=== PATIENT | female | born 1975 | race Caucasian/White ===

== ENCOUNTER 2016-10-04 07:33 | Day surgery (SDC) | payer BC ==
[2016-09-29 13:09] LABS: HEMATOCRIT 39.3 % (36.0-47.0); HEMOGLOBIN 13.1 g/dL (12.0-15.5); MEAN CORPUSCULAR HEMOGLOBIN 30.6 pg (27.0-33.4); MEAN CORPUSCULAR HGB CONC 33.4 g/dL (32.0-36.0); MEAN CORPUSCULAR VOLUME 92 fl (80-97); RED CELL DISTRIBUTION WIDTH 12.8 % (11.5-14.0); WHITE BLOOD COUNT 6.8 10^3/uL (4.0-10.5)
[2016-09-29 13:14] LABS: APPEARANCE,URINE SLIGHTLY-CLOUDY; BILIRUBIN,URINE NEGATIVE (NEGATIVE); GLUCOSE, URINE NEGATIVE (NEGATIVE); KETONES,URINE NEGATIVE (NEGATIVE); LEUKOCYTE ESTERASE,URINE MODERATE (NEGATIVE); NITRITE,URINE NEGATIVE (NEGATIVE); PROTEIN,URINE NEGATIVE (NEGATIVE); URINE SPECIFIC GRAVITY 1.013; UROBILINOGEN,URINE NEGATIVE mg/dL (<2.0)
[2016-09-29 13:39] LABS: ALANINE AMINOTRANSFERASE 27 U/L (9-52); ALBUMIN 3.9 g/dL (3.5-5.0); ALKALINE PHOSPHATASE 61 U/L (38-126); ANION GAP 10 (5-19); ASPARTATE AMINO TRANSFERASE 13 U/L (14-36); BILIRUBIN,DIRECT 0.3 mg/dL (0.0-0.4); BILIRUBIN,TOTAL 0.6 mg/dL (0.2-1.3); BLOOD UREA NITROGEN 12 mg/dL (7-20); CALCIUM 8.8 mg/dL (8.4-10.2); CARBON DIOXIDE 24 mmol/L (22-30); CHLORIDE 105 mmol/L (98-107); CREATININE RESULT 0.65 mg/dL (0.52-1.25); GLUCOSE 72 mg/dL (75-110); POTASSIUM 4.5 mmol/L (3.6-5.0); SODIUM 138.9 mmol/L (137-145); TOTAL PROTEIN 6.9 g/dL (6.3-8.2)
--- NOTE | 2016-09-29 20:24 | EKG REPORT ---
SEVERITY:- NORMAL ECG - SINUS RHYTHM : Confirmed by: Kristofer Love MD 29-Sep-2016 20:23:41
[~2016-10-04 07:33] MED LIST: CEFAZOLIN 1 GM/D5W RTU 1 GM/50 ML RTUPB IV PRN; LACTATED RINGERS 1000 ML IV PRN; LIDOCAINE 0.5% INJ-PF (5 MG/ML) 50 ML SDV SUBCUT PRN
[2016-10-04] MEDS ORDERED: BUPIVACAINE HCL 0.25% /EPINEPHRINE INJ/PF 30 ML SDV ONE (07:38)
[2016-10-04] MEDS ORDERED: CEFAZOLIN 2 GM/D5W RTU 2 GM/50 ML RTUPB IV ONE (08:02)
[2016-10-04] MEDS ORDERED: NEOSTIGMINE METHYLSULFATE 10 MG/10 ML VIAL ONE (08:41)
[2016-10-04] MEDS ORDERED: DEXAMETHASONE SOD PHOSPHATE INJ 4 MG/1 ML VIAL ONE (08:41)
[2016-10-04] MEDS ORDERED: GLYCOPYRROLATE INJ 0.4 MG/2 ML VIAL ONE (08:41)
[2016-10-04] MEDS ORDERED: LIDOCAINE 2% INJ-PF (20 MG/ML) 10 ML AMPUL ONE (08:41)
[2016-10-04] MEDS ORDERED: ONDANSETRON HCL INJ/PF 4 MG/2 ML SDV ONE ×2 (08:41)
[2016-10-04] MEDS ORDERED: VECURONIUM BROMIDE INJ 10 MG VIAL IV ONE ×2 (08:41)
[2016-10-04] MEDS ORDERED: SUCCINYLCHOLINE CHLORIDE INJ 200 MG/10 ML VIAL ONE (08:41)
[2016-10-04] MEDS ORDERED: SCOPOLAMINE HYDROBROMIDE 1.5 MG PATCH.TD72 ONE (09:00)
[2016-10-04] MEDS ORDERED: RINGERS SOLUTION,LACTATED 1,000 ML IV ONE (09:00)
[2016-10-04] MEDS ORDERED: FAMOTIDINE INJ/PF 20 MG/2 ML SDV IV ONE (09:00)
[2016-10-04] MEDS ORDERED: FENTANYL CITRATE INJ/PF 250 MCG/5 ML AMPULE ONE (09:37)
[2016-10-04] MEDS ORDERED: HYDROMORPHONE HCL INJ/PF 2 MG/ML AMPULE ONE (09:38)
[2016-10-04] MEDS ORDERED: ACETAMINOPHEN 100 ML IV ONE (09:38)
[2016-10-04] MEDS ORDERED: MIDAZOLAM 2 MG/2 ML INJ ONE (09:38)
[2016-10-04] MEDS ORDERED: PROPOFOL INJ 200 MG/20 ML VIAL IV ONE (09:38)
[2016-10-04] MEDS ORDERED: CEFAZOLIN 2 GM/D5W RTU 2 GM/50 ML RTUPB IV PRN (09:48)
[2016-10-04] MEDS ORDERED: BUPIVACAINE HCL 0.25 % INJ/PF (2.5 MG/1 ML) 30 ML VIAL ONE (10:14)
[2016-10-04] MEDS ORDERED: DIPHENHYDRAMINE HCL 50 MG/ML VIAL IV PRN (10:31)
[2016-10-04] MEDS ORDERED: MORPHINE SULFATE 10 MG/ML INJ IV PRN (10:31)
[2016-10-04] MEDS ORDERED: FENTANYL CITRATE INJ/PF 100 MCG/2 ML AMPUL IV PRN ×3 (10:31)
[2016-10-04] MEDS ORDERED: MEPERIDINE HCL/PF INJ 25 MG/1 ML DISP.SYRIN IV PRN (10:31)
[2016-10-04] MEDS ORDERED: PROMETHAZINE HCL INJ 25 MG/1 ML VIAL IV PRN (10:31)
[2016-10-04] MEDS ORDERED: METHYLENE BLUE 50 MG/10 ML AMPULE ONE ×2 (11:10→12:15)
[2016-10-04] MEDS ORDERED: CEFAZOLIN INJ 1 GM VIAL ONE (12:46)
--- NOTE | 2016-10-04 15:34 | CONSULTATION REPORT E ---
Consultation Report NAME: NAKIA BRYANT : 1975 AGE: 41Y DATE: 10/04/2016 TO: LELA FERMIN M.D. FROM: CARLI FITZGERALD M.D. Requesting Physician HISTORY OF PRESENT ILLNESS: Thank you for asking me to see this 41-year-old female, who is currently undergoing an attempted laparoscopic hysterectomy by Dr. Fitzgerald and her wet process miller head assistant. I was consulted intraoperatively because of the presence of a large amount of intraperitoneal adhesions, which would prevent Dr. Fitzgerald's safe performance of the planned hysterectomy. The patient has a history of dysmenorrhea as well as abdominal pain. She has had multiple previous abdominal surgeries and she presents for multiple intraabdominal adhesions during the laparoscopic examination. PHYSICAL EXAMINATION: The patient is prepped and draped. A laparoscope is inserted through a 5 mm port in the umbilicus and a 5 mm in the right lower quadrant of the abdomen. Examination of the peritoneal cavity reveals the presence of multiple intraabdominal adhesions. ASSESSMENT: 1. Dysmenorrhea. 2. Abdominal pain. 3. Multiple intraabdominal adhesions. PLAN: I will plan to perform a laparoscopic lysis of adhesions and possible open to assist Dr. Fitzgerald with performing the planned laparoscopic hysterectomy. DICTATING PHYSICIAN: LELA FERMIN M.D. [id number] PHY#: [id number] ID: [id number] JOB#: [id number] ACCT: [id number] cc:LELA FERMIN M.D. > MTDD
[2016-10-04] MEDS ORDERED: IBUPROFEN 800 MG TABLET PO PRN (15:48)
--- NOTE | 2016-10-04 17:19 | OPERATIVE REPORT E ---
Operative Report NAME: NAKIA BRYANT : 1975 AGE: 41Y DATE OF SURGERY: 10/04/2016 ROOM: 206 PREOPERATIVE DIAGNOSES: 1. Severe intraperitoneal adhesions. 2. Dysfunctional uterine bleeding. 3. Abdominal pain. POSTOPERATIVE DIAGNOSES: 1. Severe intraperitoneal adhesions. 2. Dysfunctional uterine bleeding. 3. Abdominal pain. PROCEDURE: Extensive lysis of adhesions, taking about 1 hour, both laparoscopic and open. SURGEON: LELA FERMIN M.D. STEEL TURNER: CARLI FITZGERALD M.D. (who dictated, also, her portion of the procedure). ANESTHESIA: General. INDICATION AND FINDINGS: This is a 41-year-old female with a history of dysfunctional uterine bleeding, abdominal pain, who was undergoing a laparoscopic, converted then to open, hysterectomy. I was consulted intraoperatively by the patient's Hospital Cook and Surgeon, Dr. Fitzgerald. Dr. Fitzgerald entered the abdomen through a laparoscopic port and found a large amount of intraabdominal adhesions due to previous surgeries as well as endometriosis. A decision was made to consult me and ask for my assistance to taking down the adhesions so to allow a safe laparoscopic or open hysterectomy. DESCRIPTION OF PROCEDURE: The patient was already in the operating room. The patient was in a supine position with the abdomen prepped and sterilly draped. A laparoscope was inserted through a midline port of the umbilicus and a second and third port were placed in the right and left lateral quadrants of the abdomen, respectively. The patient was placed in Trendelenburg position. The scope was inserted and a large amount of intraperitoneal adhesions were noted between the small bowel, colon, anterior abdominal wall, and the uterus. These adhesions were taken down painstakingly with both blunt dissection, using a peanut dissector, so to gently push the small bowel and the colon away from the abdominal wall, as well as the use of LigaSure. This was done without difficulty and the entire small bowel as well as colon were detached from the anterior abdominal wall. Next, the neck uterus was found to be surrounded by both colon and small bowel loops firmly adherent to it by both thin and thick adhesions. These were taken down both bluntly and with use of LigaSure without difficulty. However, while the initial dissection of the adhesions from the body and the fundus of the uterus was done successfully, additional dissection of adhesions of small bowel and colon with the neck of the uterus close to the cervix revealed to be more challenging due to poor visibility, bleeding, and the presence of very tenacious adhesions. At this point, the decision was made to convert the procedure from laparoscopic to open. Dr. Fitzgerald and her compounding assistant performed from a laparotomy via a Pfannenstiel incision. The peritoneal cavity was entered and small bowel and colon adhesions were taken down from the uterine neck without difficulty. Dr. Fitzgerald will dictate the rest of her procedure. Finally, again, at the end of the procedure, the rectosigmoid colon was run and found to be free from enterotomies. There was 1 area of deserosalization of the midsigmoid colon, which was repaired by interrupted Lembert 3-0 silk sutures. DICTATING PHYSICIAN: LELA FERMIN M.D. [id number] PHY#: [id number] ID: [id number] JOB#: [id number] ACCT: [id number] cc:LELA FERMIN M.D. > MTDD
[2016-10-04] MEDS ORDERED: KETOROLAC TROMETHAMINE INJ/PF 30 MG/1 ML SDV ONE (17:30)
[2016-10-04] MEDS: HYDROMORPHONE HCL INJ/PF 2 MG/ML AMPULE IV PRN ×2 (19:12→22:48)
[2016-10-05] MEDS: KETOROLAC TROMETHAMINE INJ/PF 30 MG/1 ML SDV IV SCH ×2 (02:00→09:41)
[2016-10-05] MEDS: HYDROMORPHONE HCL INJ/PF 2 MG/ML AMPULE IV PRN ×4 (04:12→20:36)
[2016-10-05 07:08] LABS: HEMATOCRIT 33.2 % (36.0-47.0); HGB HCT DIFFERENCE -0.2; MEAN CORPUSCULAR HEMOGLOBIN 30.4 pg (27.0-33.4); MEAN CORPUSCULAR HGB CONC 33.1 g/dL (32.0-36.0); MEAN CORPUSCULAR VOLUME 92 fl (80-97); RED BLOOD COUNT 3.62 10^6/uL (3.72-5.28); RED CELL DISTRIBUTION WIDTH 13.1 % (11.5-14.0); WHITE BLOOD COUNT 10.7 10^3/uL (4.0-10.5)
[2016-10-05] MEDS ORDERED: HYDROMORPHONE HCL 2 MG TABLET PO PRN (23:27)
[2016-10-05] MEDS: OXYCODONE-ACETAMINOPHEN 5-325 MG TABLET PO PRN (23:47)
[2016-10-06] MEDS: OXYCODONE-ACETAMINOPHEN 5-325 MG TABLET PO PRN (04:27)
--- NOTE | 2016-10-06 06:24 | PDOC PROGRESS REPORT ---
Subjective Progress Note for:: 10/05/16 Subjective:: doing well, no n/v, desires to have freire to gravity removed. pain controlled currently on IV meds. Physical Exam - Physical Exam Vital Signs: Temp Pulse Resp BP Pulse Ox 98.3 F 85 16 113/60 98 10/05/16 07:33 10/05/16 07:33 10/05/16 07:33 10/05/16 07:33 10/05/16 07:33 Intake & Output 10/04/16 10/05/16 10/06/16 06:59 06:59 06:59 Intake Total 7600 Output Total 4550 Balance 3050 Weight 88.45 kg General appearance: PRESENT: no acute distress, well-developed, well-nourished Head exam: PRESENT: atraumatic, normocephalic Neck exam: PRESENT: full ROM. ABSENT: carotid bruit, JVD, lymphadenopathy, thyromegaly Respiratory exam: PRESENT: clear to auscultation vitaly, symmetrical, unlabored Cardiovascular exam: PRESENT: RRR. ABSENT: diastolic murmur, rubs, systolic murmur Vascular exam: PRESENT: normal capillary refill GI/Abdominal exam: PRESENT: normal bowel sounds, soft, tenderness - approp ttp after extensive surgery, other - incisions C/D/I. ABSENT: distended, guarding, mass, organolmegaly, rebound Rectal exam: PRESENT: deferred Extremities exam: PRESENT: full ROM. ABSENT: calf tenderness, clubbing, pedal edema Neurological exam: PRESENT: alert, awake, oriented to person, oriented to place , oriented to time, oriented to situation, CN II-XII grossly intact. ABSENT: motor sensory deficit Psychiatric exam: PRESENT: appropriate affect, normal mood. ABSENT: homicidal ideation, suicidal ideation Skin exam: PRESENT: dry, intact, warm. ABSENT: cyanosis, rash Result Laboratory Results: 10/05/16 06:00 09/29/16 11:35 10/05/16 06:00 WBC 10.7 H RBC 3.62 L Hgb 11.0 L Hct 33.2 L MCV 92 MCH 30.4 MCHC 33.1 RDW 13.1 Plt Count 150 Status: Imported from PACS Assessment & Plan - Diagnosis (1) Endometriosis determined by laparoscopy Is this a current diagnosis for this admission?: YesPlan: s/p extensive pelvic adhesiolysis and JOSE, Cystoscopy, Culdoplasty (2) Pelvic adhesive disease Is this a current diagnosis for this admission?: YesPlan: s/p extensive FABRICE (3) Dysfunctional uterine bleeding Is this a current diagnosis for this admission?: YesPlan: S/p JOSE, advance care today. Plan for discharge to home tomorrow with po pain medication. - Time Time Spent with patient: 25-34 minutes Critical Time spent with patient: 15-24 minutes Medications reviewed and adjusted accordingly: Yes Anticipated discharge: Home Within: within 48 hours - Inpatient Certification Medical Necessity: Need For IV Fluids, Need for Pain Control Post Hospital Care: D/C Geoscience Technician Documentation
--- NOTE | 2016-10-06 09:46 | Operative Report ---
Operative Report DATE OF SURGERY: 10/04/16 PREOPERATIVE DIAGNOSIS: Dysfunctional Uterine Bleeding, Pelvic pain. POSTOPERATIVE DIAGNOSIS: SEBASTIAN, Endometriosis, Pelvic Adhesive Disease, Extensive Bowel Adhesions. OPERATION: Operative L/S with Extensive FABRICE, Conversion to Laparotomy with JOSE and LSO, Lysis of adhesions, Culdoplasty, Cystoscopy SURGEON: CARLI FITZGERALD 1ST DRAWER IN DOBBY LOOM: KAREN JAIME 2ND Crocodile Farmer: LELA FERMIN ANESTHESIA: GA TISSUE REMOVED OR ALTERED: Uterus and cervix, Left Fallopian tube and Left ovary COMPLICATIONS: extensive pelvic adhesions and conversion to abdominal hysterectomy due to significant bowel adhesions. ESTIMATED BLOOD LOSS: 300ml INTRAOPERATIVE FINDINGS: Upon entry with the laparoscope extensive pelvic adhesions noted with bowel adhesions to the left and right pelvic sidewall, and dense adhesions attached circumferentially around the uterus. Right fallopian tube and ovary surgically absent. Uterus normal, left endometrioma and left ovary and fallopian tube densely adhered to pelvic sidewall. PROCEDURE: Anesthesia: Julio MOFFETT, Keenan Peraza CRNA Indications: Estimated blood loss: 300ml Urine output: 1400ml IV fluids: 3200ml Procedure the patient was taken to the operating room where general anesthesia was obtained. The patient was then prepped and placed in the dorsal supine position with lithotomy and prepped and draped in the usual fashion. A speculum was then placed in the patient's vagina and the cervix grasped with a single-tooth tenaculum at approximately the 12 o'clock position of the anterior lip of the cervix. The medium Vesicare device was then placed and suture placed at the 12 o'clock position as well in order to maintain cut against the cervix during procedure. Single-tooth tenaculum and speculum were then removed from the patient's cervix and vagina. Attention was then turned to the abdomen where an infraumbilical skin incision was made and the Veress needle inserted into the abdominal cavity. Aspiration was negative therefore the abdomen was insufflated with carbon dioxide approximately 4 L. After adequate insufflation the Veress needle was removed and the 5 mm Optiview trocar was placed under direct visualization with the laparoscope. Survey of the patient's abdomen and pelvis were performed with findings as noted above with bowel adhesions so significant around and to the uterus that the uterus was unable to be manipulated. At this time 5mm skin incisions were made approximately 2 cm medial and 4 cm superior to the anterior iliac spine on both the left and the right. Additional survey was performed and these adhesions appeared to be dense around the uterus. General Surgery consult was done and Dr. Ferimn came in to evaluate the pelvic adhesive disease. 5 mm trochars placed at all of the sites. Extensive pelvic adhesiolysis then performed for approxiately 1.5 hours with the Laparoscopic Ligasure with removal of the bowel adhesions to the left and right pelvic sidewall and to the anterior portion of the uterus. Once visualiztion of the posterior portion of the uterus was achieved the bowel adhesions to the posterior uterus were noted to be very dense and ahesiolysis was unable to be safely effected with the Laparoscopic then decision was made to convert to open abdominal procedure to safely perform the remainder of the adhesiolysis. The umbilical and right and left trocars were then removed and trocar sites closed in the usual fashion with 3-0 monocryl and dermabond. At this time a Pfannenstiel skin incision was then made and carried through to the underlying layers of the fascia with the scalpel. The fascia was incised in the midline and the incision extended laterally with the Macias scissors. The superior aspect of the fascial incision was then grasped with Madiha clamps elevated and the underlying rectus muscles dissected off sharply. Attention was then turned to the inferior aspect of the fascial incision which in a similar fashion was grasped, tented up with Mihaela clamps, and the rectus muscles dissected off sharply. The rectus muscles were then in the midline and the peritoneum at the amount identified and entered sharply. At this time continued lysis of adhesions and removal of adhesions of the bowel from the posterior surface of the uterus were effected with the assistance of Dr. Fermin. The left and right round ligaments were identified and ligated and transected and the bladder flap carefully created. Then the utero-ovarian vessels/ligaments were cauterized and transected in the usual fashion with the LigaSure device the remainder of the uterine vessels in anterior and posterior leaves of the broad ligament as well as cardinal and uterosacral ligaments were coagulated and transected in a serial fashion down to the level of the uterine artery. The uterine artery was then identified and cauterized and transected in the usual fashion with the LigaSure device. The anterior leaf of the broad ligament was then dissected to the midline establishing a bladder flap with a combination of blunt and sharp dissection. Sharp dissection made superiorly bilaterally to the level of the internal os of the cervix. Ann Marie were then placed serially bilaterally from the internal os to the level of the distal cervix and serially ligated and transected and Bebeto scissors used to effect amputation of the cervix thus removing the uterus and cervix. The vaginal cuff was then closed with interruped 2-0 vicryl suture. Culdoplasty performed with 2-0 ethibond from the left uterosacral to the right uterosacral ligaments in the usual fashion. [place] retractor was placed for visualization. At this time attention was turned to the left pelvic sidewall where the left fallopian tube and left ovary were identified and carefully resected from their attachments to the pelvic sidewall. Endometrioma was identified. The left fallopian tube and ovary and the uterus and cervix were handed off to pathology. The abdomen was then copiously irrigated and no evidence of bleeding noted with all sites hemostatic. Sponges, laps and instruments removed. The peritoneum and rectus muscles were then closed en mass with 2-0 chromic in a running fashion. The fascia was reapproximated with 0 Vicryl in a running fashion from each lateral edge to the midline. The skin was closed with 3-0 Monocryl in a running subcuticular fashion with overlying Dermabond for additional dressing as well as wound closure. The patient tolerated the procedure well. Sponge lap needle and instrument counts are correct times 2. 2 g of Ancef were given prior to skin incision then redosed after 3 hours due to the length of the procedure. At this time freire catheter was removed and cystoscopy was performed with bladder wall intact and bilateral ureteral jets noted. A new freire catheter was placed. At this time the procedure was complete and the patient was taken to the recovery area awake and in stable condition.
--- NOTE | 2016-10-06 10:23 | PDOC PROGRESS REPORT ---
Subjective Progress Note for:: 10/06/16 Subjective:: doing well, no n/v, freire to gravity discontinued yesterday and pt reports voiding well, ambulating to the bathroom, pain controlled currently on po meds, + flatus, no BM Physical Exam - Physical Exam Vital Signs: Temp Pulse Resp BP Pulse Ox 98.2 F 84 16 115/59 L 99 10/06/16 09:00 10/06/16 09:00 10/06/16 09:00 10/06/16 09:00 10/06/16 09:00 Intake & Output 10/05/16 10/06/16 10/07/16 06:59 06:59 06:59 Intake Total 7600 550 Output Total 4550 1000 Balance 3050 -450 Weight 88.45 kg General appearance: PRESENT: no acute distress, well-developed, well-nourished Head exam: PRESENT: atraumatic Respiratory exam: PRESENT: clear to auscultation vitaly, symmetrical, unlabored Cardiovascular exam: PRESENT: RRR. ABSENT: diastolic murmur, rubs, systolic murmur GI/Abdominal exam: PRESENT: normal bowel sounds, soft, tenderness - approp ttp, incisions c/d/i, other. ABSENT: distended, guarding, mass, organolmegaly, rebound Rectal exam: PRESENT: deferred Extremities exam: PRESENT: full ROM. ABSENT: calf tenderness, clubbing, pedal edema Musculoskeletal exam: PRESENT: ambulatory Neurological exam: PRESENT: alert, awake, oriented to person, oriented to place , oriented to time, oriented to situation, CN II-XII grossly intact. ABSENT: motor sensory deficit Psychiatric exam: PRESENT: appropriate affect, normal mood. ABSENT: homicidal ideation, suicidal ideation Skin exam: PRESENT: dry, intact, warm. ABSENT: cyanosis, rash Result Laboratory Results: 10/05/16 06:00 09/29/16 11:35 Assessment & Plan - Diagnosis (1) Endometriosis determined by laparoscopy Is this a current diagnosis for this admission?: YesPlan: s/p extensive pelvic adhesiolysis and JOSE, Cystoscopy, Culdoplasty (2) Pelvic adhesive disease Is this a current diagnosis for this admission?: YesPlan: s/p extensive FABRICE (3) Dysfunctional uterine bleeding Is this a current diagnosis for this admission?: YesPlan: S/p JOSE, advance care today. Tolerated advance of care yesterday well. Meets criteria for discharge. Discharge to home today. F/u in office next week. - Time Time Spent with patient: Less than 15 minutes Medications reviewed and adjusted accordingly: Yes Anticipated discharge: Home Within: within 24 hours - Plan Summary Plan Summary: Discharge to home.
--- NOTE | 2016-10-06 10:37 | PDOC DISCHARGE SUMMARY ---
General - Admit/Disc Date/PCP Admission Date/Primary Care Provider: GAY NUNEZDO Admitted 10/04/2016 Discharge Date: 10/06/16 - Discharge Diagnosis (1) Endometriosis determined by laparoscopy Is this a current diagnosis for this admission?: YesSummary: Severe endometriosis and pelvic adhesions noted on L/S. LAVH abandoned and concerted to JOSE. See op note. (2) Pelvic adhesive disease Is this a current diagnosis for this admission?: YesSummary: See op note. S/p Adhesiolysis and JOSE. Doing well and tolerated advance of care w/o difficulty. (3) Dysfunctional uterine bleeding Is this a current diagnosis for this admission?: YesSummary: S/o JOSE/LSO, h/o RSO. Doing well postop. Discharge to home. Rx norethindrone for prevention of climacteric symptoms. Percocet and Dilaudid given for pain. F/u in office in 1 wk. - Additional Information Discharge Diet: As Tolerated Discharge Activity: Activity As Tolerated, No Driving, Pelvic Rest, Slowly Increase Activity Home Medications: Docusate Sodium [Colace 100 mg Capsule] 100 mg PO BID #60 capsule 10/06/16 Hydromorphone HCl [Dilaudid 2 mg Tablet] 2 mg PO Q4HP PRN #30 tablet 10/06/16 Ibuprofen [Motrin 800 mg Tablet] 800 mg PO Q8HP PRN #90 tablet 10/06/16 Norethindrone Acetate [Norethindrone AC (Lupaneta)] 5 mg PO DAILY #90 tablet Oxycodone HCl/Acetaminophen [Percocet 5-325 mg Tablet] 2 tab PO Q4HP PRN #60 tablet 10/06/16 Simethicone [Mylicon 80 mg Chewable Tablet] 80 mg PO QIDP PRN #60 tab.chew 10/06 History of Present Illness History of Present Illness: NAKIA BRYANT is a 41 year old female with DUB and pelvic pain s/p H/ S D&C and Myosure in 12/2015 with persistent DUB beginnign in June. She desired definitive management with Hysterectomy. LAVH attempted but due to dense pelvic adhesions and bowel adhesions converted to JOSE. Hospital Course Hospital Course: 41 year old female with DUB and pelvic pain s/p H/S D&C and Myosure in 12/2015 with persistent DUB beginnign in June. She desired definitive management with Hysterectomy. LAVH attempted but due to dense pelvic adhesions and bowel adhesions converted to JOSE. Pt tolerated advance of care on POD#1 and then meets criteria for discharge on POD#2 Physical Exam - Physical Exam Vital Signs: Temp Pulse Resp BP Pulse Ox 98.2 F 84 16 115/59 L 99 10/06/16 09:00 10/06/16 09:00 10/06/16 09:00 10/06/16 09:00 10/06/16 09:00 Intake & Output 10/05/16 10/06/16 10/07/16 06:59 06:59 06:59 Intake Total 7600 550 Output Total 4550 1000 Balance 3050 -450 Weight 88.45 kg General appearance: PRESENT: no acute distress, well-developed, well-nourished Head exam: PRESENT: atraumatic, normocephalic Neck exam: PRESENT: full ROM. ABSENT: carotid bruit, JVD, lymphadenopathy, thyromegaly Respiratory exam: PRESENT: clear to auscultation vitaly, symmetrical, unlabored Cardiovascular exam: PRESENT: RRR. ABSENT: diastolic murmur, rubs, systolic murmur Pulses: PRESENT: normal dorsalis pedis pul, +2 pedal pulses bilateral Vascular exam: PRESENT: normal capillary refill GI/Abdominal exam: PRESENT: normal bowel sounds, soft, tenderness - approp ttp, incisions c/d/i. ABSENT: distended, guarding, mass, organolmegaly, rebound Rectal exam: PRESENT: deferred Extremities exam: PRESENT: full ROM. ABSENT: calf tenderness, clubbing, pedal edema Neurological exam: PRESENT: alert, awake, oriented to person, oriented to place , oriented to time, oriented to situation, CN II-XII grossly intact. ABSENT: motor sensory deficit Psychiatric exam: PRESENT: appropriate affect, normal mood. ABSENT: homicidal ideation, suicidal ideation Skin exam: PRESENT: dry, intact, warm. ABSENT: cyanosis, rash Result Laboratory Results: 10/05/16 06:00 09/29/16 11:35 Plan Discharge Plan: Discharge to home and f/u in office in 1 weeks since converted to JOSE Time Spent: Less than 30 Minutes
[2016-10-06 10:57] VITALS: BP 120/61
== END 2016-10-06 11:26 | disposition home or self-care (01) ==
LOC: OROUT 07:33 → 2N 16:55 → OROUT 10-06 11:26
PROVIDERS: ATTEND Student in an Organized Health Care Education/Training Program
PROC: 0UTC0ZZ Resection of Cervix, Open Approach (ICD-10-PCS; 2016-10-04)
PROC: 0UT10ZZ Resection of Left Ovary, Open Approach (ICD-10-PCS; 2016-10-04)
PROC: 0UT60ZZ Resection of Left Fallopian Tube, Open Approach (ICD-10-PCS; 2016-10-04)
PROC: 0DNW0ZZ Release Peritoneum, Open Approach (ICD-10-PCS; 2016-10-04)
PROC: 0UT90ZZ Resection of Uterus, Open Approach (ICD-10-PCS; principal; 2016-10-04 09:45)
DX: N72 Inflammatory disease of cervix uteri (principal); D25.1 Intramural leiomyoma of uterus; N83.12 Corpus luteum cyst of left ovary; N70.11 Chronic salpingitis; N80.1 Endometriosis of ovary; N80.2 Endometriosis of fallopian tube; K66.0 Peritoneal adhesions (postprocedural) (postinfection); R10.9 Unspecified abdominal pain; N93.8 Other specified abnormal uterine and vaginal bleeding; M79.7 Fibromyalgia; Z53.31 Laparoscopic surgical procedure converted to open procedure; Z88.8 Allergy status to other drugs, medicaments and biological substances; Z88.6 Allergy status to analgesic agent; Z88.2 Allergy status to sulfonamides; Z79.891 Long term (current) use of opiate analgesic; Z79.899 Other long term (current) drug therapy
CPT/HCPCS: 93005; 86900; 86901; 36415 ×2; 86850; 85027 ×2; 81025; 80053; 81001; 88305 ×2; 88307 ×2; 93010; 58150; 58999; 49329; C1765; J2250; J0690 ×2; J1100; J3010; J3490 ×2; J1885; J1170; J0330; J2405; J7120; J2704; S0028; J0131; Q9968; 840

== ENCOUNTER 2016-11-22 19:34 | Emergency (ER) | payer BC ==
[2016-11-22 20:10] VITALS: BP 124/68
[2016-11-22] MEDS ORDERED: LIDOCAINE 1%/EPINEPHRINE INJ 20 ML VIAL INJ ONE (22:02)
--- NOTE | 2016-11-22 22:04 | ER Document Report ---
ED Animal Bite - General Chief Complaint: Animal Bite Stated Complaint: LEFT LEG INJURY Time Seen by Provider: 11/22/16 21:55 Notes: Patient is a 41-year-old female comes emergency department for chief complaint of bite to her left lower extremity by her 5 foot 10.2 pound josephine. This happened just prior to arrival. She is up-to-date on her tetanus shot within the past year. She denies history of diabetes. This is the second time her nicholasa has bitten her requiring sutures. TRAVEL OUTSIDE OF THE [place] IN LAST 30 DAYS: No - Related Data Allergies/Adverse Reactions: aspirin [Aspirin] Allergy (Unknown, Verified 11/22/16 20:04) cranberry Allergy (Unknown, Verified 11/22/16 20:04) UTIs Sulfa (Sulfonamide Antibiotics) Allergy (Unknown, Verified 11/22/16 20:04) migraines,GI upset sulfamethoxazole [From Septra] Allergy (Unknown, Verified 11/22/16 20:04) amitriptyline [Amitriptyline] Allergy (Verified 11/22/16 20:04) pregabalin [From Lyrica] Allergy (Verified 11/22/16 20:04) Past Medical History - General Information source: Patient - Social History Smoking Status: Never Smoker Frequency of alcohol use: None Drug Abuse: None Lives with: Family Family History: Arthritis, CAD, DM, Malignancy - Past Medical History Cardiac Medical History: Denies: Hx Coronary Artery Disease, Hx Heart Attack, Hx Hypertension Pulmonary Medical History: Denies: Hx Asthma, Hx Bronchitis, Hx COPD, Hx Pneumonia Neurological Medical History: Reports: Hx Migraine. Denies: Hx Cerebrovascular Accident, Hx Seizures Renal/ Medical History: Denies: Hx Peritoneal Dialysis GI Medical History: Reports: Hx Gastroesophageal Reflux Disease Musculoskeltal Medical History: Reports Hx Arthritis - KNEES- RECEIVES INJECTIONS, Reports Hx Fibromyalgia Psychiatric Medical History: Reports: Hx Anxiety, Hx Depression, Hx Obsessive Compulsive Disorder Past Surgical History: Reports: Hx Gynecologic Surgery - right tube and ovary removed., Hx Tonsillectomy, Hx Tubal Ligation - Immunizations Immunizations up to date: Yes Hx Diphtheria, Pertussis, Tetanus Vaccination: Yes Review of Systems - Review of Systems Constitutional: No symptoms reported EENT: No symptoms reported Cardiovascular: No symptoms reported Respiratory: No symptoms reported Gastrointestinal: No symptoms reported Genitourinary: No symptoms reported Female Genitourinary: No symptoms reported Musculoskeletal: See HPI Skin: See HPI Hematologic/Lymphatic: No symptoms reported Neurological/Psychological: No symptoms reported Physical Exam - Vital signs Vitals: Temp Pulse Resp BP Pulse Ox 98.9 F 88 18 124/68 100 11/22/16 20:04 11/22/16 20:04 11/22/16 20:04 11/22/16 20:04 11/22/16 20:04 Interpretation: Normal - General General appearance: Appears well, Alert In distress: None - HEENT Head: Normocephalic, Atraumatic Eyes: Normal Pupils: PERRL - Respiratory Respiratory status: No respiratory distress Chest status: Nontender Breath sounds: Normal Chest palpation: Normal - Cardiovascular Rhythm: Regular Heart sounds: Normal auscultation Murmur: No - Abdominal Inspection: Normal Distension: No distension Bowel sounds: Normal Tenderness: Nontender Organomegaly: No organomegaly - Back Back: Normal, Nontender - Extremities General upper extremity: Normal inspection, Nontender, Normal color, Normal ROM , Normal temperature General lower extremity: Other - Left distal anterior tibial area with one 4 cm horizontal laceration, also an irregular laceration in the shape of a cross, approximately 7 cm across - Neurological Neuro grossly intact: Yes Cognition: Normal Orientation: AAOx4 [place] Coma Scale Eye Opening: Spontaneous [place] Coma Scale Verbal: Oriented [place] Coma Scale Motor: Obeys Commands [place] Coma Scale Total: 15 Speech: Normal Motor strength normal: LUE, RUE, LLE, RLE Sensory: Normal - Psychological Associated symptoms: Normal affect, Normal mood - Skin Skin Temperature: Warm Skin Moisture: Dry Skin Color: Normal Course - Re-evaluation Re-evalutation: Lacerations cleaned, sutured, dressed. Based on journal data on the Internet the bacteria to cover from iguana bite are covered with staph coverage and fluoroquinolone coverage. Given Keflex and Cipro. Discussed wound care, follow -up, return precautions. Patient states understanding and agreement. - Vital Signs Vital signs: Temp Pulse Resp BP Pulse Ox 98.9 F 88 18 124/68 100 11/22/16 20:04 11/22/16 20:04 11/22/16 20:04 11/22/16 20:04 11/22/16 20:04 Procedures - Laceration/Wound Repair left distal tibia #1 Wound length (cm): 4 Wound's Depth, Shape: Linear Laceration pre-procedure: Sterile PPE donned, Sterile drapes applied, Shur- Clens applied - surgical cleanser Anesthetic type: 1% Lidocaine w/epi Volume Anesthetic (mLs): 3 Wound explored: Clean, No foreign body removed Irrigated w/ Saline (mLs): 40 Wound Repaired With: Sutures Suture Size/Type: 4:0, Nylon Number of Sutures: 8 Layer Closure?: No Post-procedure wound care: Sterile dressing applied Post-procedure NV exam normal: Yes Complications: No left distal tibia #2 Wound length (cm): 8 - 7 across, 1 vertical Wound's Depth, Shape: Irregular Laceration pre-procedure: Sterile PPE donned, Sterile drapes applied, Shur- Clens applied - surgical cleanser Anesthetic type: 1% Lidocaine w/epi Volume Anesthetic (mLs): 5 Wound explored: Clean, No foreign body removed Irrigated w/ Saline (mLs): 50 Wound Debrided: Minimal Wound Repaired With: Sutures Suture Size/Type: 4:0, Nylon Number of Sutures: 18 Layer Closure?: No - two vertical matresses, but no deep sutures Post-procedure wound care: Sterile dressing applied Post-procedure NV exam normal: Yes Complications: No Discharge - Discharge Clinical Impression: Animal bite Condition: Stable Disposition: HOME, SELF-CARE Additional Instructions: Take both the Keflex and Cipro antibiotics, clean area with soap and water, dab dry, avoid soaking, you can apply thin film of antibiotic ointment with dressing over the site. Sutures need to come out in 10-14 days. Please return immediately for any signs of infection including redness, swelling, fever, discolored drainage, or any other concerning symptoms. Prescriptions: Cephalexin Monohydrate [Keflex 500 mg Capsule] 500 mg PO QID #20 capsule Ciprofloxacin HCl [Cipro 500 mg Tablet] 500 mg PO BID #10 tablet Forms: Return to Work Referrals: GAY NUNEZ DO [Primary Care Provider] - Follow up as needed
[2016-11-23] MEDS ORDERED: CEPHALEXIN 500 MG CAPSULE PO ONE (00:18)
[2016-11-23] MEDS ORDERED: CIPROFLOXACIN HCL 500 MG TABLET PO ONE (00:18)
== END 2016-11-23 00:44 | disposition home or self-care (01) ==
LOC: ER 19:34
PROC: 0HQLXZZ Repair Left Lower Leg Skin, External Approach (ICD-10-PCS; principal; 2016-11-22)
DX: S81.852A Open bite, left lower leg, initial encounter (principal); W59.81XA Bitten by other nonvenomous reptiles, initial encounter
CPT/HCPCS: 99283

== ENCOUNTER 2017-02-01 18:06 | Emergency (ER) | payer BC, MEDICARE ==
[2017-02-01] MEDS ORDERED: LIDOCAINE 1% INJ-PF (10 MG/ML) 30 ML SDV INJ ONE (19:00)
[2017-02-01] MEDS ORDERED: CIPROFLOXACIN HCL 500 MG TABLET PO ONE (19:47)
[2017-02-01] MEDS ORDERED: HYDROCODONE/ACETAMINOPHEN 5-325 MG (6 TAB/ER DISP) PO PRN (19:48)
--- NOTE | 2017-02-01 19:50 | ER Document Report ---
ED General - General Chief Complaint: Animal Bite Stated Complaint: IGUANA BITE ON RIGHT HAND Time Seen by Provider: 02/01/17 18:51 Mode of Arrival: Ambulatory Information source: Patient Notes: 41-year-old female presents with complaints of iguana bite to the right hand just prior to arrival. Patient notes she has been bit twice prior requiring sutures, patient denies any other injuries, denies any neurological deficits in her hand. Patient has washed it out and her tetanus is up-to-date TRAVEL OUTSIDE OF THE [place] IN LAST 30 DAYS: No - HPI Onset: Just prior to arrival Onset/Duration: Sudden Quality of pain: Sharp Severity: Mild Pain Level: 1 Associated symptoms: None Exacerbated by: Denies Relieved by: Denies Similar symptoms previously: Yes Recently seen / treated by doctor: Yes - Related Data Allergies/Adverse Reactions: aspirin [Aspirin] Allergy (Unknown, Verified 02/01/17 19:19) cranberry Allergy (Unknown, Verified 02/01/17 19:19) UTIs Sulfa (Sulfonamide Antibiotics) Allergy (Unknown, Verified 02/01/17 19:19) migraines,GI upset sulfamethoxazole [From Septra] Allergy (Unknown, Verified 02/01/17 19:19) amitriptyline [Amitriptyline] Allergy (Verified 02/01/17 19:19) ibuprofen Allergy (Verified 02/01/17 19:19) pregabalin [From Lyrica] Allergy (Verified 02/01/17 19:19) Past Medical History - Social History Smoking Status: Never Smoker Cigarette use (# per day): No Chew tobacco use (# tins/day): No Smoking Education Provided: No Frequency of alcohol use: None Drug Abuse: None Family History: Arthritis, CAD, DM, Malignancy Patient has suicidal ideation: No Patient has homicidal ideation: No - Past Medical History Cardiac Medical History: Denies: Hx Coronary Artery Disease, Hx Heart Attack, Hx Hypertension Pulmonary Medical History: Denies: Hx Asthma, Hx Bronchitis, Hx COPD, Hx Pneumonia Neurological Medical History: Reports: Hx Migraine. Denies: Hx Cerebrovascular Accident, Hx Seizures Renal/ Medical History: Denies: Hx Peritoneal Dialysis GI Medical History: Reports: Hx Gastroesophageal Reflux Disease Musculoskeltal Medical History: Reports Hx Arthritis - KNEES- RECEIVES INJECTIONS, Reports Hx Fibromyalgia Psychiatric Medical History: Reports: Hx Anxiety, Hx Depression, Hx Obsessive Compulsive Disorder Past Surgical History: Reports: Hx Gynecologic Surgery - right tube and ovary removed., Hx Tonsillectomy, Hx Tubal Ligation - Immunizations Immunizations up to date: Yes Hx Diphtheria, Pertussis, Tetanus Vaccination: Yes Review of Systems - Review of Systems Notes: REVIEW OF SYSTEMS: CONSTITUTIONAL : Denies fever, chills, or sweats. Denies recent illness. EENT: Denies eye, ear, throat, or mouth pain or symptoms. Denies nasal or sinus congestion or discharge. Denies throat, tongue, or mouth swelling or difficulty swallowing. CARDIOVASCULAR: Denies chest pain. Denies palpitations or racing or irregular heart beat. Denies ankle edema. RESPIRATORY: Denies cough, cold, or chest congestion. Denies shortness of breath, difficulty breathing, or wheezing. GASTROINTESTINAL: Denies abdominal pain or distention. Denies nausea, vomiting , or diarrhea. Denies blood in vomitus, stools, or per rectum. Denies black, tarry stools. Denies constipation. GENITOURINARY: Denies difficulty urinating, painful urination, burning, frequency, blood in urine, or discharge. FEMALE GENITOURINARY: Denies vaginal bleeding, heavy or abnormal periods, irregular periods. Denies vaginal discharge or odor. MUSCULOSKELETAL: Denies back or neck pain or stiffness. Denies joint pain or swelling. SKIN: Laceration right hand HEMATOLOGIC : Denies easy bruising or bleeding. LYMPHATIC: Denies swollen, enlarged glands. NEUROLOGICAL: Denies confusion or altered mental status. Denies passing out or loss of consciousness. Denies dizziness or lightheadedness. Denies headache. Denies weakness or paralysis or loss of use of either side. Denies problems with gait or speech. Denies sensory loss, numbness, or tingling. Denies seizures. PSYCHIATRIC: Denies anxiety or stress. Denies depression, suicidal ideation, or homicidal ideation. ALL OTHER SYSTEMS REVIEWED AND NEGATIVE. PHYSICAL EXAMINATION: GENERAL: Well-appearing, well-nourished and in no acute distress. HEAD: Atraumatic, normocephalic. EYES: Pupils equal round and reactive to light, extraocular movements intact, conjunctiva are normal. ENT: Nares patent, oropharynx clear without exudates. Moist mucous membranes. NECK: Normal range of motion, supple without lymphadenopathy LUNGS: Breath sounds clear to auscultation bilaterally and equal. No wheezes rales or rhonchi. HEART: Regular rate and rhythm without murmurs ABDOMEN: Soft, nontender, nondistended abdomen. No guarding, no rebound. No masses appreciated. Female : deferred Musculoskeletal: Normal range of motion, no pitting or edema. No cyanosis. NEUROLOGICAL: Cranial nerves grossly intact. Normal speech, normal gait. Normal sensory, motor exams PSYCH: Normal mood, normal affect. SKIN: 6 cm laceration of the dorsal aspect of the right hand, there is no involvement of the musculature or tendons or blood vessels, it is a superficial laceration Dictation was performed using [employer] voice recognition software Physical Exam - Vital signs Vitals: Temp Pulse Resp BP Pulse Ox 98.1 F 82 14 143/86 H 99 02/01/17 18:26 02/01/17 18:26 02/01/17 18:26 02/01/17 18:26 02/01/17 18:26 Course - Re-evaluation Re-evalutation: 02/01/17 23:19 Area was anesthetized cleansed extensively, 6 sutures were placed and the wound was well approximated, patient will be started on Cipro due to concerns of Salmonella from the bite. Follow-up in 10-14 days for suture removal or immediately if there is any signs of infection After performing a Medical Screening Examination, I estimate there is LOW risk for OPEN FRACTURE, COMPARTMENT SYNDROME, TENDON RUPTURE, ACUTE NEUROVASCULAR INJURY, or RETAINED FOREIGN BODY, thus I consider the discharge disposition reasonable. Also, there is no evidence or peritonitis, sepsis, or toxicity. I have reevaluated this patient multiple times and no significant life threatening changes are noted. The patient and I have discussed the diagnosis and risks, and we agree with discharging home with close follow-up with the understanding that symptoms and presentations can change. We also discussed returning to the Emergency Department immediately if new or worsening symptoms occur. We have discussed the symptoms which are most concerning (e.g., changing or worsening pain, fever, numbness, weakness, cool or painful digits) that necessitate immediate return. - Vital Signs Vital signs: Temp Pulse Resp BP Pulse Ox 97.8 F 68 16 125/76 99 02/01/17 20:15 02/01/17 20:15 02/01/17 20:15 02/01/17 20:15 11/16/17 20:15 Procedures - Laceration/Wound Repair Right Hand Time completed: 19:49 Wound length (cm): 8 Wound's Depth, Shape: Superficial Anesthetic type: 1% Lidocaine Wound explored: Clean, No foreign body removed Wound Debrided: Minimal Wound Repaired With: Sutures Suture Size/Type: 5:0, Ethilon Number of Sutures: 6 Layer Closure?: No Post-procedure wound care: Sterile dressing applied Post-procedure NV exam normal: Yes Complications: No Discharge - Discharge Clinical Impression: Bitten by nonvenomous lizard Qualifiers: Encounter type: initial encounter Qualified Code(s): W59.01XA - Bitten by nonvenomous lizards, initial encounter Laceration of hand Qualifiers: Encounter type: initial encounter Foreign body presence: without foreign body Laterality: right Qualified Code(s): S61.411A - Laceration without foreign body of right hand, initial encounter Condition: Stable Disposition: HOME, SELF-CARE Instructions: Laceration Care ([facility]), Prophylactic Antibiotic ([facility]) Additional Instructions: Follow-up in 10-14 days for removal of suture or return immediately if there is any sign of infection Prescriptions: Ciprofloxacin HCl [Cipro 500 mg Tablet] 500 mg PO BID #20 tablet Referrals: GAY NUNEZ DO [Primary Care Provider] - Follow up as needed
[2017-02-01 20:19] VITALS: BP 125/76
== END 2017-02-01 20:14 | disposition home or self-care (01) ==
LOC: ER 18:06
PROC: 0HQFXZZ Repair Right Hand Skin, External Approach (ICD-10-PCS; principal; 2017-02-01)
DX: S61.411A Laceration without foreign body of right hand, initial encounter (principal); W59.01XA Bitten by nonvenomous lizards, initial encounter
CPT/HCPCS: 99283; 12004; A9270 ×2; J3490

== ENCOUNTER → 2017-10-23 | Outpatient (CLI) | payer MEDICARE, MEDICAID ==
--- NOTE | 2017-10-23 12:39 | RADIOLOGY REPORT (SQ) ---
EXAM DESCRIPTION: FOOT LEFT COMPLETE COMPLETED DATE/TIME: 10/23/2017 12:18 pm REASON FOR STUDY: LEFT FOOT PAIN M79.672 PAIN IN LEFT FOOT COMPARISON: None. NUMBER OF VIEWS: Three views. TECHNIQUE: AP, lateral and oblique without weight bearing radiographic images acquired of the left f oot. LIMITATIONS: None. FINDINGS: MINERALIZATION: Normal. BONES: No acute fracture or dislocation. No worrisome bone lesions. No significant osteophytes. JOINTS: No erosions. No glenroy-articular osteopenia. No chondrocalcinosis. SOFT TISSUES: No swelling. No calcifications. OTHER: Small heel spur IMPRESSION: Small heel spur. Study is otherwise normal. TECHNICAL DOCUMENTATION: JOB ID: [id number] [email or web address] All Rights Reserved Reading location - IP/workstation name: [email or web address]
== END ==
LOC: OD 12:02
PROVIDERS: ATTEND Family Medicine
DX: M79.672 Pain in left foot (principal); M77.32 Calcaneal spur, left foot

== ENCOUNTER 2018-02-11 12:51 | Emergency (ER) | payer MEDICARE, MEDICAID ==
[2018-02-11] MEDS ORDERED: OXYCODONE-ACETAMINOPHEN 5-325 MG TABLET PO ONE (14:23)
--- NOTE | 2018-02-11 14:29 | ER Document Report ---
ED General - General Chief Complaint: Puncture Wound Stated Complaint: BITE ON LEFT FINGER Time Seen by Provider: 02/11/18 13:57 TRAVEL OUTSIDE OF THE [place] IN LAST 30 DAYS: No - HPI Notes: Patient is a 42-year-old female that presents to the emergency department for chief complaint of iguana bite to left second digit. Just prior to arrival patient was removing a bandage from her go on his nose when it bit her. She states it clamped down and she had to pry its dry open to get it to release her finger. She has been bit by this particular one in the past and states it is aggressive now because it is not breeding season. Her last tetanus vaccine was 2 years ago. She reports some numbness to the tip of her finger. She has not taken any medication at home for pain. Past Medical History: Fibromyalgia Past Surgical History: Hysterectomy, tubal ligation Social History: Denies drugs alcohol and tobacco Family History: Reviewed and noncontributory for presenting illness Allergies: Reviewed, see documented allergy list. REVIEW OF SYSTEMS: CONSTITUTIONAL : No fever No chills No diaphoresis No recent illness EENT: No vision changes No congestion No sore throat CARDIOVASCULAR: No chest pain No palpitations RESPIRATORY: No shortness of breath No cough No difficulty breathing GASTROINTESTINAL: No abdominal pain No nausea No vomiting No diarrhea GENITOURINARY: No dysuria No hematuria No difficulty urinating MUSCULOSKELETAL: No back pain No leg pain No arm pain SKIN: No rashes Animal bite LYMPHATIC: No swollen, enlarged glands. NEUROLOGICAL: No lightheadedness No headache No weakness No paresthesias PSYCHIATRIC: No anxiety No depression PHYSICAL EXAMINATION: Vital signs reviewed, nursing noted reviewed. GENERAL: Well-appearing, well-nourished and in no acute distress. HEAD: Atraumatic, normocephalic. EYES: Eyes appear normal, extraocular movements intact, sclera anicteric, conjunctiva are normal. ENT: nares patent, oropharynx clear without exudates. Moist mucous membranes. NECK: Normal range of motion, supple without lymphadenopathy LUNGS: Breath sounds clear to auscultation bilaterally and equal. No wheezes rales or rhonchi. HEART: Regular rate and rhythm without murmurs ABDOMEN: Soft, nontender, normoactive bowel sounds. No rebound, guarding, or rigidity. No masses appreciated. EXTREMITIES: Distal second digit on left hand tender to palpation, small jagged laceration to ulnar side of distal left digit with no active bleeding. Puncture wound at the base of the nail with no active bleeding. Subjective decreased sensation at tip of left second digit. Good range of motion, no pitting or edema. NEUROLOGICAL: Moves all extremities spontaneously Motor. No focal neurologic deficit. PSYCH: Normal mood, normal affect. SKIN: Warm, Dry, normal turgor, no rashes or lesions noted on exposed skin - Related Data Allergies/Adverse Reactions: aspirin [Aspirin] Allergy (Unknown, Verified 02/01/17 19:19) cranberry Allergy (Unknown, Verified 02/01/17 19:19) UTIs Sulfa (Sulfonamide Antibiotics) Allergy (Unknown, Verified 02/01/17 19:19) migraines,GI upset sulfamethoxazole [From Septra] Allergy (Unknown, Verified 02/01/17 19:19) amitriptyline [Amitriptyline] Allergy (Verified 02/01/17 19:19) ibuprofen Allergy (Verified 02/01/17 19:19) pregabalin [From Lyrica] Allergy (Verified 02/01/17 19:19) Past Medical History - Social History Smoking Status: Never Smoker Frequency of alcohol use: None Drug Abuse: None Family History: Arthritis, CAD, DM, Malignancy Patient has suicidal ideation: No Patient has homicidal ideation: No - Past Medical History Cardiac Medical History: Denies: Hx Coronary Artery Disease, Hx Heart Attack, Hx Hypertension Pulmonary Medical History: Denies: Hx Asthma, Hx Bronchitis, Hx COPD, Hx Pneumonia Neurological Medical History: Reports: Hx Migraine. Denies: Hx Cerebrovascular Accident, Hx Seizures Renal/ Medical History: Denies: Hx Peritoneal Dialysis GI Medical History: Reports: Hx Gastroesophageal Reflux Disease Musculoskeletal Medical History: Reports Hx Arthritis - KNEES- RECEIVES INJECTIONS, Reports Hx Fibromyalgia Psychiatric Medical History: Reports: Hx Anxiety, Hx Depression, Hx Obsessive Compulsive Disorder Past Surgical History: Reports: Hx Gynecologic Surgery - right tube and ovary removed., Hx Hysterectomy, Hx Tonsillectomy, Hx Tubal Ligation - Immunizations Immunizations up to date: Yes Hx Diphtheria, Pertussis, Tetanus Vaccination: Yes Physical Exam - Vital signs Vitals: Temp Pulse Resp BP Pulse Ox 98.0 F 85 18 134/82 H 98 02/11/18 13:16 02/11/18 13:16 02/11/18 13:16 02/11/18 13:16 02/11/18 13:16 Course - Re-evaluation Re-evalutation: 02/11/18 14:26 Vitals reviewed. Nursing notes reviewed. Patient has a animal bite to her distal left second digit with no active bleeding. The skin edges are jagged but well approximated. Because of concern for infection the bite will not be sutured. X-ray will be obtained to evaluate for underlying fracture. Patient was given 1 Percocet for pain. 02/11/18 15:12 X-ray negative for acute injury. Patient will be given a prescription for Augmentin and was counseled on monitoring for infection. There is currently no infection however with this being an animal bite with puncture wound to the hand she is at high risk. Patient was also counseled on wound care. She will return to the emergency room for any new or worsening symptoms including signs of infection. She will follow with her PCP for wound reevaluation in the next few days. Discharged home in stable condition. Hand X-Ray 02/11/18 14:22 IMPRESSION: NEGATIVE STUDY OF THE LEFT HAND. NO RADIOGRAPHIC EVIDENCE OF ACUTE INJURY. - Vital Signs Vital signs: Temp Pulse Resp BP Pulse Ox 98.0 F 85 18 134/82 H 98 02/11/18 13:16 02/11/18 13:16 02/11/18 13:16 02/11/18 13:16 02/11/18 13:16 Discharge - Discharge Clinical Impression: Reptile bite Qualifiers: Encounter type: initial encounter Qualified Code(s): W59.81XA - Bitten by other nonvenomous reptiles, initial encounter Condition: Stable Disposition: HOME, SELF-CARE Instructions: Animal Bites ([facility]) Additional Instructions: Please return to the emergency department if you have any worsening, or concern of your symptoms. Please return to the emergency department if you develop chest pain, difficulty breathing, severe abdominal pain, or ongoing vomiting. Please follow-up with your primary care physician in 2-3 days and any other recommended physicians. If prescribed, take all medications as directed. If you have any questions or concerns do not hesitate to return the emergency department for evaluation. Use copious amounts of warm soapy water to wash your wound 3-5 times daily. Keep the wound clean and dry. Monitor for signs of infection including increased redness, swelling, pain, or drainage. Prescriptions: Amox Tr/Potassium Clavulanate [Augmentin 875-125 mg Tablet] 1 tab PO BID #14 tablet Referrals: GAY NUNEZ DO [Primary Care Provider] - Follow up in 3-5 days
--- NOTE | 2018-02-11 15:10 | RADIOLOGY REPORT (SQ) ---
EXAM DESCRIPTION: HAND LEFT 3 VIEWS COMPLETED DATE/TIME: 02/11/2018 2:48 pm REASON FOR STUDY: 2nd digit trauma COMPARISON: None. EXAM PARAMETERS: NUMBER OF VIEWS: Three views. TECHNIQUE: AP, lateral and oblique radiographic images acquired of the left hand. LIMITATIONS: None. FINDINGS: MINERALIZATION: Normal. BONES: No acute fracture or dislocation. No worrisome bone lesions. JOINTS: No effusions. SOFT TISSUES: No soft tissue swelling. No foreign body. OTHER: No other significant finding. IMPRESSION: NEGATIVE STUDY OF THE LEFT HAND. NO RADIOGRAPHIC EVIDENCE OF ACUTE INJURY. TECHNICAL DOCUMENTATION: JOB ID: [id number] [email or web address]- All Rights Reserved Reading location - IP/workstation name: [email or web address]
[2018-02-11 15:30] VITALS: BP 122/77
== END 2018-02-11 15:30 | disposition home or self-care (01) ==
LOC: ER 12:51
DX: S61.351A Open bite of left index finger with damage to nail, initial encounter (principal); W59.81XA Bitten by other nonvenomous reptiles, initial encounter; R20.0 Anesthesia of skin; Z88.6 Allergy status to analgesic agent; Z91.018 Allergy to other foods; Z88.2 Allergy status to sulfonamides; Z88.1 Allergy status to other antibiotic agents; Z88.8 Allergy status to other drugs, medicaments and biological substances
CPT/HCPCS: 99283; 73130; A9270

== ENCOUNTER → 2018-07-04 | Outpatient (CLI) | payer MEDICARE, MEDICAID ==
--- NOTE | 2018-07-04 19:01 | RADIOLOGY REPORT (SQ) ---
EXAM DESCRIPTION: TOE RIGHT COMPLETED DATE/TIME: 07/04/2018 6:37 pm REASON FOR STUDY: M79.674 PAIN IN RIGHT TOE(S) M79.675 PAIN IN LEFT TOE(S) COMPARISON: None. NUMBER OF VIEWS: Three views. TECHNIQUE: AP, lateral, and oblique images acquired of the right first toe. LIMITATIONS: None. FINDINGS: MINERALIZATION: Normal. BONES: No acute fracture or dislocation. No worrisome bone lesions. JOINTS: No effusions. SOFT TISSUES: No soft tissue swelling. No foreign body. OTHER: No other significant finding. IMPRESSION: NEGATIVE STUDY OF THE RIGHT TOE. NO RADIOGRAPHIC EVIDENCE OF ACUTE INJURY. COMMENT: SITE OF TRAUMA/COMPLAINT MARKED/STAMP COMPLETED: No TECHNICAL DOCUMENTATION: JOB ID: [id number] [employer]- All Rights Reserved Reading location - IP/workstation name: [email or web address]
== END ==
LOC: RAD 18:13
PROVIDERS: ATTEND Nurse Practitioner Acute Care
DX: M79.675 Pain in left toe(s) (principal); M79.674 Pain in right toe(s)

== ENCOUNTER → 2018-07-18 | Outpatient (CLI) | payer MEDICARE, MEDICAID | LOC: OD 10:54 | PROVIDERS: ATTEND Otolaryngology | DX: J30.9 Allergic rhinitis, unspecified (principal) | CPT/HCPCS: 36415; 82785; 86003 ==

== ENCOUNTER → 2019-01-13 | Day surgery (SDC) | payer MEDICARE, MEDICAID ==
[~2019-01-13] MED LIST changes: -CEFAZOLIN 1 GM/D5W RTU 1 GM/50 ML RTUPB IV PRN; -LACTATED RINGERS 1000 ML IV PRN; -LIDOCAINE 0.5% INJ-PF (5 MG/ML) 50 ML SDV SUBCUT PRN; +METHYLPREDNISOLONE ACETATE INJ 80 MG/1 ML VIAL ONE
--- NOTE | 2019-01-13 14:35 | RADIOLOGY REPORT (SQ) ---
EXAM DESCRIPTION: INJECT/ASPIR HIP/SHLDR/KNEE; FLUORO/NEEDLE PLACEMENT COMPLETED DATE/TIME: 01/13/2019 2:05 pm REASON FOR STUDY: M16.11 UNILATERAL PRIMARY OSTEOARTHRITIS, RIGHT HIP M16.11 UNILATERAL PRIMARY OST EOARTHRITIS, RIGHT HIP COMPARISON: None. FLUOROSCOPY TIME: 11 seconds. 1 image saved to PACS. LIMITATIONS: None. PROCEDURE: SITE OF INJECTION: Right femoroacetabular joint. LOCALIZING CONTRAST TYPE AND DOSE: 1 mL of Omnipaque 300. MEDICATION TYPE AND DOSE: 5 mL of bupivacaine and 80 mg of Depo-Medrol. Using local anesthesia and sterile technique with fluoroscopic guidance, the needle was advanced into the joint. Iodinated contrast was injected to verify intraarticular placement. This was followed by therapeutic injection of the indicated medications. The needle was removed. There were no immediat e complications. Preprocedure pain level: 5/5. Postprocedure pain level: 0/5. IMPRESSION: THERAPEUTIC INJECTION OF THE RIGHT FEMOROACETABULAR JOINT ABOVE. COMMENT: Patient medication list reviewed: Yes- Quality ID# [id number]:Eligible professional attests to doc umenting in the medical record they obtained, updated, or reviewed the patient's current medications. . Quality ID 145: Final reports for procedures using fluoroscopy that document radiation exposure iam enrique, or exposure time and number of fluorographic images (if radiation exposure indices are not avail able) TECHNICAL DOCUMENTATION: JOB ID: [id number] [employer]- All Rights Reserved Reading location - IP/workstation name: [email or web address]
--- NOTE | 2019-01-13 14:35 | RADIOLOGY REPORT (SQ) ---
EXAM DESCRIPTION: INJECT/ASPIR HIP/SHLDR/KNEE; FLUORO/NEEDLE PLACEMENT COMPLETED DATE/TIME: 01/13/2019 2:05 pm REASON FOR STUDY: M16.11 UNILATERAL PRIMARY OSTEOARTHRITIS, RIGHT HIP M16.11 UNILATERAL PRIMARY OST EOARTHRITIS, RIGHT HIP COMPARISON: None. FLUOROSCOPY TIME: 11 seconds. 1 image saved to PACS. LIMITATIONS: None. PROCEDURE: SITE OF INJECTION: Right femoroacetabular joint. LOCALIZING CONTRAST TYPE AND DOSE: 1 mL of Omnipaque 300. MEDICATION TYPE AND DOSE: 5 mL of bupivacaine and 80 mg of Depo-Medrol. Using local anesthesia and sterile technique with fluoroscopic guidance, the needle was advanced into the joint. Iodinated contrast was injected to verify intraarticular placement. This was followed by therapeutic injection of the indicated medications. The needle was removed. There were no immediat e complications. Preprocedure pain level: 5/5. Postprocedure pain level: 0/5. IMPRESSION: THERAPEUTIC INJECTION OF THE RIGHT FEMOROACETABULAR JOINT ABOVE. COMMENT: Patient medication list reviewed: Yes- Quality ID# [id number]:Eligible professional attests to doc umenting in the medical record they obtained, updated, or reviewed the patient's current medications. . Quality ID 145: Final reports for procedures using fluoroscopy that document radiation exposure iam enrique, or exposure time and number of fluorographic images (if radiation exposure indices are not avail able) TECHNICAL DOCUMENTATION: JOB ID: [id number] [employer]- All Rights Reserved Reading location - IP/workstation name: [email or web address]
== END ==
LOC: RAD 13:11
PROVIDERS: ATTEND Family Medicine
DX: M16.11 Unilateral primary osteoarthritis, right hip (principal)
CPT/HCPCS: 20610; 77002; J1040

== ENCOUNTER → 2019-03-20 | Day surgery (SDC) | payer MEDICARE, MEDICAID ==
[~2019-03-20] MED LIST changes: +LIDOCAINE 1% INJ-PF (10 MG/ML) 30 ML SDV ONE; -METHYLPREDNISOLONE ACETATE INJ 80 MG/1 ML VIAL ONE
--- NOTE | 2019-03-20 14:52 | RADIOLOGY REPORT (SQ) ---
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 FLUOROSCOPY TIME: 12 seconds 1 images saved to PACS. LIMITATIONS: None. PROCEDURE: Procedure, risks, benefits and alternatives explained to patient who then gave written c onsent. The right hip was marked and a time-out was called for correct marking verification. Entry site marked using fluoroscopic guidance. Hip prepped and draped using sterile technique. Local ane sthesia achieved using 1% lidocaine injection. Hypodermic needle introduced into the joint space un asaf direct fluoroscopic visualization. Non-ionic contrast instilled to confirm intra-articular posit ion. Dilute gadolinium solution then injected. Needle removed and entry site covered with sterile bandage. No immediate complications noted. TECHNIQUE: Digital images acquired during fluoroscopy and stored on PACS. Patient immediately take n to the MR suite for additional imaging. INJECTION LOCATION: Right hip. CONTRAST TYPE AND AMOUNT: 0.5 cc Omnipaque 8 cc Dotarem/Saline mixture. IMPRESSION: SUCCESSFUL NEEDLE PLACEMENT AND INJECTION FOR RIGHT HIP MR ARTHROGRAM. COMMENT: Quality ID 145: Final reports for procedures using fluoroscopy that document radiation exp osure indices, or exposure time and number of fluorographic images (if radiation exposure indices are not available) TECHNICAL DOCUMENTATION: JOB ID: [id number] [employer]- All Rights Reserved Reading location - IP/workstation name: [email or web address]
--- NOTE | 2019-03-20 15:37 | RADIOLOGY REPORT (SQ) ---
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 TECHNIQUE: Post arthrogram imaging is performed using T1 and T1 and T2 fat saturated sequences of th e pelvis and specific hip of interest. LIMITATIONS: Body habitus. Motion. FINDINGS: JOINT DISTENSION: Adequate. No loose body. BONE MARROW: No edema. No marrow replacement. FEMORAL HEAD, NECK, AND ACETABULUM: No occult fracture. No osteophytes or subchondral cysts. Normal s phericity of femoral head/neck junction. No acetabular dysplasia. No evidence of femoroacetabular imp ingement. PUBIC RAMI AND ISCHIUM: No occult fracture. SACRUM AND NEL: SI joints normal in signal. No occult fracture. EFFUSIONS: None. LABRUM AND CARTILAGE: No labral tear. Cartilage of normal thickness without delamination. MUSCLES AND SOFT TISSUES: Adductors and piriformis normal. Abductors and greater trochanteric bursa n ormal without edema or fluid. Iliopsoas bursa without fluid. Hamstring attachments without edema or t ear. PELVIC SOFT TISSUES: No masses or adenopathy. SCIATIC NERVE: Identified without masses. OTHER: No other significant finding. IMPRESSION: NORMAL MRI ARTHROGRAM OF THE HIP. TECHNICAL DOCUMENTATION: JOB ID: [id number]- All Rights Reserved Reading location - IP/workstation name: [email or web address]
== END ==
LOC: RAD 12:50
PROVIDERS: ATTEND Family Medicine
DX: M24.151 Other articular cartilage disorders, right hip (principal)
CPT/HCPCS: 73722; 77002; 27095; A9576; J3490